=== PATIENT | female | born 1980 | race Caucasian/White ===

== ENCOUNTER 2017-01-09 14:49 | Emergency (ER) | payer MEDICAID ==
[2017-01-09 14:56] VITALS: BP 116/81; PULSE 102; TEMP 98.3; O2SAT 100
[2017-01-09] MEDS ORDERED: Oxycodone/Acetaminophen 5/325 mg Tab PO STA (15:36)
[2017-01-09] MEDS ORDERED: Oxycodone/Acetaminophen 5/325 mg Tab ONE (15:47)
--- NOTE | 2017-01-09 16:02 | C.PDOC ---
History Of Present Illness The patient, a 36 y/o female, presents to the ED for evaluation of right elbow and right knee pain which began after she sustained a fall 2 days ago. Patient states she is able to ambulate but doing so aggravates the pain. Patient denies head injury, LOC, change in sensation. Time Seen by Provider: 01/09/17 14:59 Chief Complaint (Nursing): Upper Extremity Problem/Injury History Per: Patient History/Exam Limitations: no limitations Onset/Duration Of Symptoms: Days (2) Current Symptoms Are (Timing): Still Present Quality: "Pain" Exacerbating Factor(s): Other (+ambulation ) Additional History Per: Patient Past Medical History Reviewed: Historical Data, Nursing Documentation, Vital Signs Vital Signs: Last Vital Signs Temp 98.3 F 01/09/17 14:55 Pulse 102 H 01/09/17 14:55 Resp 18 01/09/17 16:13 BP 116/81 01/09/17 14:55 Pulse Ox 100 01/09/17 20:26 - Medical History PMH: Anxiety, Back Problems, Gall Bladder Disease Denies: Chronic Kidney Disease Surgical History: Back Surgery, Cholecystectomy (2000) - [facility] Procedures INSERT INDWELLING CATH (02/18/14) Family History: States: Unknown Family Hx - Social History Hx Tobacco Use: No Hx Alcohol Use: Yes Hx Substance Use: No - Immunization History Hx Tetanus Toxoid Vaccination: No Hx Influenza Vaccination: Yes Hx Pneumococcal Vaccination: No Review Of Systems Except As Marked, All Systems Reviewed And Found Negative. Musculoskeletal: Positive for: Other (+right elbow and right knee pain ) Neurological: Negative for: Weakness, Numbness, Other (head injury, LOC ) Physical Exam - Physical Exam Appears: Non-toxic, No Acute Distress Skin: Warm, Dry, Ecchymosis (to anterior aspect of right knee and posterior elbow ) Head: Atraumatic, Normacephalic Eye(s): bilateral: Normal Inspection, EOMI Nose: Normal Oral Mucosa: Moist Neck: Supple Chest: Symmetrical, No Deformity, No Tenderness Cardiovascular: Rhythm Regular Respiratory: Normal Breath Sounds Back: Normal Inspection, No Vertebral Tenderness, No Paraspinal Tenderness Extremity: Normal ROM, Tenderness (anterior knee, posterior elbow ), Capillary Refill (less than 2 seconds ), No Deformity, No Swelling Extremity: Bilateral: Normal Color And Temperature Pulses: Left Radial: Normal, Right Radial: Normal Neurological/Psych: Oriented x3, Normal Speech, Normal Cognition, Normal Motor, Normal Sensation Gait: Steady ED Course And Treatment O2 Sat by Pulse Oximetry: 100 (on RA) Pulse Ox Interpretation: Normal Progress Note: Right knee XR, Right elbow XR ordered. XR results are unremarkable. Patient received Percocet PO. Florentin wrap applied to affected areas by light technician. On reassessment, pt is resting comfortably, showing no signs of distress, and reports an improvement in her pain. Patient is stable for discharge and is advised to follow up with orthopedic care within 1-2 days for further evaluation. Reassessment Condition: Improved Disposition - Disposition Referrals: Nathan Carroll MD [Medical Doctor] - Disposition: HOME/ ROUTINE Disposition Time: 16:01 Condition: STABLE Additional Instructions: Follow up with your primary medical doctor or clinic in 2-5 days for further evaluation. Take medications as prescribed. Return to the emergency department at any time if symptoms persist or worsen. Prescriptions: traMADol [Ultram] 50 mg PO Q8 #15 tab Instructions: Contusion in Adults (ED) - Clinical Impression Clinical Impression: Elbow contusion, Knee contusion - PA / PRICE CHECKER / Resident Statement MD/DO has reviewed & agrees with the documentation as recorded. - Scribe Statement The provider has reviewed the documentation as recorded by the Scribe (Yandy Locke) All medical record entries made by the Scribe were at my direction and personally dictated by me. I have reviewed the chart and agree that the record accurately reflects my personal performance of the history, physical exam, medical decision making, and the department course for this patient. I have also personally directed, reviewed, and agree with the discharge instructions and disposition.
[2017-01-09 16:14] VITALS: RESP 18
--- NOTE | 2017-01-09 16:42 | RAD ---
PROCEDURE: Right Knee Radiographs. HISTORY: Pain. No history of recent/ related trauma provided COMPARISON: None. FINDINGS: BONES: Normal. No fracture. JOINTS: Normal. No osteoarthritis. JOINT EFFUSION: None. OTHER FINDINGS: None. IMPRESSION: No acute findings related to/accounting for the clinical presentation. Concordant results with the preliminary interpretation rendered by the emergency department physician procedure.
--- NOTE | 2017-01-09 16:43 | RAD ---
PROCEDURE: Radiographs of the right elbow. HISTORY: pain COMPARISON: No prior. FINDINGS: BONES: Normal. No fracture. JOINTS: Normal. No osteoarthritis. SOFT TISSUES: Normal. JOINT EFFUSION: None. OTHER FINDINGS: None. IMPRESSION: Unremarkable radiographs of the right elbow. Concordant results with the preliminary interpretation rendered by the emergency department physician procedure.
== END 2017-01-09 16:13 | disposition home or self-care (01) ==
LOC: C.ER 14:49
DX: S50.01XA Contusion of right elbow, initial encounter (principal); S80.01XA Contusion of right knee, initial encounter; W19.XXXA Unspecified fall, initial encounter; Y93.89 Activity, other specified; Y92.89 Other specified places as the place of occurrence of the external cause

== ENCOUNTER 2017-02-16 11:56 | Emergency (ER) | payer MEDICAID ==
[2017-02-16 12:14] VITALS: TEMP 98.4
--- NOTE | 2017-02-16 12:52 | C.PDOC ---
History Of Present Illness 36 y/o female pmhx spinal stenosis and cervical herniated disc presents to ED with complaints of worsening left sided neck and shoulder pain. Pt was seeing pain management up until 1 month ago due to insurance issues. Pt also reports decreased ROM to the neck with tingling sensation to left arm. Pt did not take any medications for the pain. Denies fever, chills, weakness, or any other complaints. Time Seen by Provider: 02/16/17 12:19 Chief Complaint (Nursing): Upper Extremity Problem/Injury History Per: Patient History/Exam Limitations: no limitations Onset/Duration Of Symptoms: Days Current Symptoms Are (Timing): Worse Quality: "Pain" Severity: Moderate Recent travel outside of the [place]: No Past Medical History Reviewed: Historical Data, Nursing Documentation, Vital Signs Vital Signs: Last Vital Signs Temp 98.4 F 02/16/17 12:11 Pulse 95 H 02/16/17 12:11 Resp 16 02/16/17 12:11 BP 106/72 02/16/17 12:11 Pulse Ox 100 02/16/17 22:33 - Medical History PMH: Anxiety, Back Problems, Gall Bladder Disease Denies: Chronic Kidney Disease Surgical History: Back Surgery, Cholecystectomy - [facility] Procedures INSERT INDWELLING CATH (02/18/14) Family History: States: Unknown Family Hx - Social History Hx Tobacco Use: No Hx Alcohol Use: Yes Hx Substance Use: No - Immunization History Hx Tetanus Toxoid Vaccination: No Hx Influenza Vaccination: Yes Hx Pneumococcal Vaccination: No Review Of Systems Constitutional: Negative for: Fever, Chills Musculoskeletal: Positive for: Neck Pain, Shoulder Pain (left shoulder pain) Neurological: Positive for: Numbness (tingling sensation to left arm). Negative for: Weakness Physical Exam - Physical Exam Appears: Non-toxic, No Acute Distress Skin: Warm, Dry, No Rash Head: Atraumatic, Normacephalic Neck: Normal ROM, Paracervical Tenderness (left trapezius and paracervical tenderness ), Other (spasm to left trapezius) Cardiovascular: Rhythm Regular, No Murmur Respiratory: Normal Breath Sounds, No Rales, No Rhonchi, No Wheezing Extremity: No Normal ROM (decreased ROM to left shoulder, able to abduct left arm to shoulder height), Tenderness, Capillary Refill (<2 seconds), No Deformity Pulses: Left Radial: Normal Neurological/Psych: Oriented x3, Normal Speech, Normal Motor, No Normal Sensation (slight decrease in sensation to left posterior arm) ED Course And Treatment O2 Sat by Pulse Oximetry: 100 (room air) Pulse Ox Interpretation: Normal Progress Note: Plan: flexeril, toradol Medical Decision Making Medical Decision Making: pt feeling better after Toradol and muscle relaxant with much less tenderness on palpation of left trapezius muscle and increased movement to left arm, will d /c with nsaid, flexeril and some Tylenol #4 with pmd and pain mgmt follow up Disposition Counseled Patient/Family Regarding: Diagnosis, Need For Followup, Rx Given - Disposition Referrals: Chase Scott MD [Medical Doctor] - Disposition: HOME/ ROUTINE Disposition Time: 13:34 Condition: IMPROVED Additional Instructions: Follow up with your pmd and pain management as soon as possible. Take naproxen and flexeril as prescribed. Use Tylenol #4 for severe pain. Warm packs to left shoulder area several times a day. Prescriptions: Acetaminophen/Cod NO 4 [Tylenol/Cod 300 mg-60 mg] 1 tab PO Q8 PRN #9 tab PRN Reason: Pain, Severe (8-10) Cyclobenzaprine [Cyclobenzaprine HCl] 10 mg PO Q8 #9 tab Naproxen 500 mg PO BID #30 tab Instructions: Cervical Radiculopathy (ED), Muscle Spasm (ED) Forms: General Discharge Instructions - Clinical Impression Clinical Impression: Trapezius muscle spasm, Cervical radiculopathy - PA / TRANSITIONAL CARE MANAGER / Resident Statement MD/DO has reviewed & agrees with the documentation as recorded. - Scribe Statement The provider has reviewed the documentation as recorded by the Lexy Lyon All medical record entries made by the Lexy were at my direction and personally dictated by me. I have reviewed the chart and agree that the record accurately reflects my personal performance of the history, physical exam, medical decision making, and the department course for this patient. I have also personally directed, reviewed, and agree with the discharge instructions and disposition.
[2017-02-16 14:30] VITALS: BP 106/72; PULSE 95; RESP 16; O2SAT 100
== END 2017-02-16 14:29 | disposition home or self-care (01) ==
LOC: C.ER 11:56
DX: M54.12 Radiculopathy, cervical region (principal); M62.838 Other muscle spasm
CPT/HCPCS: 96372; 99283; J1885

== ENCOUNTER 2017-11-22 03:47 | Emergency (ER) | payer MEDICAID ==
[2017-11-22 03:47] VITALS: BMI 40.2
--- NOTE | 2017-11-22 04:13 | C.PDOC ---
History Of Present Illness 37 year old female brought in by family who states patient took some pills that make her restless and unsteady. Patient is pleasant, but seems restless on arival. She denies any suicidal or homicidal ideation. Time Seen by Provider: 11/22/17 05:05 Chief Complaint (Nursing): Substance Abuse History Per: Patient, Family History/Exam Limitations: no limitations Onset/Duration Of Symptoms: Hrs Current Symptoms Are (Timing): Still Present Suicide/Self Injury Attempted (Context): None Modifying Factor(s): Other Severity: None Pain Scale Rating Of: 0 Recent travel outside of the [place]: No Past Medical History Reviewed: Historical Data, Nursing Documentation, Vital Signs Vital Signs: Last Vital Signs Temp 98.6 F 11/22/17 03:58 Pulse 124 H 11/22/17 03:58 Resp 22 11/22/17 03:58 BP Pulse Ox 98 11/22/17 05:11 - Medical History PMH: Anxiety, Back Problems, Gall Bladder Disease Denies: Chronic Kidney Disease Surgical History: Back Surgery, Cholecystectomy - [facility] Procedures INSERT INDWELLING CATH (02/18/14) Family History: States: Unknown Family Hx - Social History Hx Tobacco Use: No Hx Alcohol Use: Yes Hx Substance Use: No - Immunization History Hx Tetanus Toxoid Vaccination: Yes Hx Influenza Vaccination: Yes Hx Pneumococcal Vaccination: Yes Review Of Systems Constitutional: Negative for: Fever Cardiovascular: Negative for: Chest Pain Respiratory: Negative for: Shortness of Breath Psych: Positive for: Other (seems restless). Negative for: Suicidal ideation Physical Exam - Physical Exam Appears: Non-toxic, No Acute Distress, Other (appears restless) Skin: Warm, Dry Head: Normacephalic Eye(s): bilateral: Normal Inspection Oral Mucosa: Moist Neck: Supple Chest: Symmetrical Cardiovascular: Rhythm Regular Respiratory: No Rales, No Rhonchi, No Wheezing Gastrointestinal/Abdominal: Soft, No Tenderness, No Distention Extremity: Bilateral: Atraumatic, Normal Color And Temperature, Normal ROM Pulses: Left Dorsalis Pedis: Normal, Right Dorsalis Pedis: Normal Neurological/Psych: Oriented x3 ED Course And Treatment - Laboratory Results Result Diagrams: 11/22/17 04:49 11/22/17 04:49 O2 Sat by Pulse Oximetry: 98 (RA) Pulse Ox Interpretation: Normal Progress Note: Labs, EKG ordered and reviewed. Patient started on IV fluids. Placed on 1:1 observation Disposition Counseled Patient/Family Regarding: Studies Performed, Diagnosis - Disposition Disposition Time: 07:02 Condition: UNKNOWN Forms: [facility] (German) - Clinical Impression Clinical Impression: Dizziness, Change in behavior - Scribe Statement The provider has reviewed the documentation as recorded by the Scribe (Olesya Ortiz) Provider Attestation: All medical record entries made by the Scribe were at my direction and personally dictated by me. I have reviewed the chart and agree that the record accurately reflects my personal performance of the history, physical exam, medical decision making, and the department course for this patient. I have also personally directed, reviewed, and agree with the discharge instructions and disposition. Physician Patient Turnover Patient Signed Over To: Carl Sosa Handoff Comments: pending ct, re-eval and dispostion
[2017-11-22] MEDS ORDERED: Sodium Chloride 0.9% 1,000 ML IV ONE (04:29)
[2017-11-22 04:55] LABS: BASO % 0.4 % (0.0-2.0); HEMOGLOBIN 8.3 g/dL (11.0-16.0); LYMPH # 1.6 K/uL (1.0-4.3); LYMPH % 12.9 % (20.0-40.0); MEAN CELL VOLUME 66.9 fL (81.0-99.0); MONO # 1.3 K/uL (0.0-0.8); MONO % 10.3 % (0.0-10.0); NEUT # 9.4 K/uL (1.8-7.0); NEUT % 76.4 % (50.0-75.0); RBC 4.13 Mil/uL (3.80-5.20); RED CELL DISTRIBUTION WIDTH 17.4 % (11.5-14.5); WHITE BLOOD COUNT 12.2 K/uL (4.8-10.8)
[2017-11-22 05:00] LABS: SQUAMOUS EPITHIAL 55 /hpf (0-5); URINE BACTERIA FEW (<OCC); URINE BILIRUBIN NEGATIVE (NEGATIVE); URINE BLOOD NEGATIVE (NEGATIVE); URINE CLARITY Hazy (Clear); URINE COLOR Amber (YELLOW); URINE GLUCOSE (UA) NORMAL (Normal); URINE LEUKOCYTE ESTERASE 1+ Leu/uL (Negative); URINE PROTEIN 1+ mg/dL (NEGATIVE)
[2017-11-22 05:04] LABS: HCG,QUALITATIVE URINE NEGATIVE (NEGATIVE)
[2017-11-22 05:09] LABS: ACETAMINOPHEN < 10.0 ug/mL (10.0-30.0); ALB/GLOB RATIO 0.9 (1.0-2.1); ALBUMIN 4.1 g/dL (3.5-5.0); ALT/SGPT 13 U/L (9-52); AST/SGOT 22 U/L (14-36); BLOOD UREA NITROGEN 11 mg/dL (7-17); CALCIUM 9.3 mg/dl (8.6-10.4); GFR AFRICAN-AMERICAN > 60; GFR NON-AFRICAN AMERICAN > 60; SALICYLATE < 1.0 mg/dL 1
[2017-11-22] MEDS ORDERED: Sodium Chloride 0.9% 250 ML IV ONE (05:28)
[2017-11-22] MEDS ORDERED: DiphenhydrAMINE 50 mg/ml Inj IVP STA (06:14)
[2017-11-22 06:25] LABS: BENZODIAZEPINES, UR NEGATIVE (NEGATIVE); OPIATES, UR NEGATIVE (NEGATIVE); PHENCYCLIDINE, UR NEGATIVE (NEGATIVE)
[2017-11-22] MEDS ORDERED: DiphenhydrAMINE 50 mg/ml Inj ONE (06:37)
[2017-11-22 07:05] LABS: BARBITURATES, UR POSITIVE (NEGATIVE)
--- NOTE | 2017-11-22 08:49 | CT ---
PROCEDURE: CT HEAD WITHOUT CONTRAST. HISTORY: change mental status COMPARISON: 06/18/2017 TECHNIQUE: Axial computed tomography images were obtained through the head/brain without intravenous contrast. Radiation dose: Total exam DLP = 2614 mGy-cm. This CT exam was performed using one or more of the following dose reduction techniques: Automated exposure control, adjustment of the mA and/or kV according to patient size, and/or use of iterative reconstruction technique. FINDINGS: HEMORRHAGE: No intracranial hemorrhage. BRAIN: No mass effect or edema. No atrophy or chronic microvascular ischemic changes. VENTRICLES: Unremarkable. No hydrocephalus. CALVARIUM: Unremarkable. PARANASAL SINUSES: Unremarkable as visualized. No significant inflammatory changes. MASTOID AIR CELLS: Unremarkable as visualized. No inflammatory changes. OTHER FINDINGS: None. IMPRESSION: Normal CT of the Head.
--- NOTE | 2017-11-22 08:53 | RAD ---
HISTORY: ams COMPARISON: 03/25/2014 FINDINGS: LUNGS: No active pulmonary disease. Inspiration shallow. Metallic device projecting over the left heart -possible flip cell phone PLEURA: No significant pleural effusion identified, no pneumothorax apparent. CARDIOVASCULAR: Normal. OSSEOUS STRUCTURES: Thoracic spondylosis. VISUALIZED UPPER ABDOMEN: Normal. OTHER FINDINGS: None. IMPRESSION: No active disease. No interval pathology noted
[2017-11-22 09:08] VITALS: BP 132/76; PULSE 98; RESP 18; TEMP 98.8; O2SAT 100
--- NOTE | 2017-11-22 23:45 | CARD ---
APPROVED REPORT EKG Measurement Heart [id number] <Conclusion> Sinus tachycardia Low voltage QRS Possible Anterolateral infarct, age undetermined Abnormal ECG
== END 2017-11-22 09:15 | disposition left against medical advice (07) ==
LOC: C.ER 03:47
DX: R42 Dizziness and giddiness (principal); R46.89 Other symptoms and signs involving appearance and behavior; D64.9 Anemia, unspecified
CPT/HCPCS: 70450; 71045; 80053; 80320; 80324; 80329; 80345; 80346; 80349; 80353; 80358; 80361; 81001; 83992; 84703; 85025; 93005; 96361; 96374; 96375; 99285; J1200; J1885; J7040

== ENCOUNTER 2018-01-05 14:52 | Emergency (ER) | payer SELFPAY ==
[2018-01-05 14:52] VITALS: BMI 40.2
[2018-01-05 15:01] VITALS: TEMP 98.1
[2018-01-05] MEDS ORDERED: Sodium Chloride 0.9% 1,000 ML IV ONE (15:48)
[2018-01-05 15:59] LABS: BASO # 0.1 K/uL (0.0-0.2); BASO % 0.5 % (0.0-2.0); EOS % 0.2 % (0.0-4.0); HEMOGLOBIN 7.6 g/dL (11.0-16.0); LYMPH # 1.5 K/uL (1.0-4.3); MEAN CORPUSCULAR HEMOGLOBIN 20.5 pg (27.0-31.0); MEAN CORPUSCULAR HGB CONC 30.2 g/dL (33.0-37.0); MEAN PLATELET VOLUME 8.4 fL (7.2-11.7); MONO # 0.8 K/uL (0.0-0.8); MONO % 7.8 % (0.0-10.0); NEUT # 7.6 K/uL (1.8-7.0); NEUT % 76.5 % (50.0-75.0); RBC 3.73 Mil/uL (3.80-5.20); RED CELL DISTRIBUTION WIDTH 17.4 % (11.5-14.5); WHITE BLOOD COUNT 9.9 K/uL (4.8-10.8)
[2018-01-05] MEDS ORDERED: Sodium Chloride 0.9% 1,000 ML ONE (16:00)
--- NOTE | 2018-01-05 16:01 | C.PDOC ---
History Of Present Illness 37 y/o female with a pmhx of cervical stenosis presents to the ED with complaints of feeling dizzy and lightheaded, onset while at work today. No fevers or chills. Patient also reports mild left-sided abdominal pain. Denies any headaches, neck pain, chest pain, SOB, vomiting, or diarrhea. Time Seen by Provider: 01/05/18 15:19 Chief Complaint (Nursing): Weakness/Neurological Deficit History Per: Patient History/Exam Limitations: no limitations Onset/Duration Of Symptoms: Hrs Current Symptoms Are (Timing): Still Present Past Medical History Reviewed: Historical Data, Nursing Documentation, Vital Signs Vital Signs: Last Vital Signs Temp 98.1 F 01/05/18 15:00 Pulse 97 H 01/05/18 17:01 Resp 18 01/05/18 17:01 BP 133/79 01/05/18 17:01 Pulse Ox 100 01/05/18 17:01 - Medical History PMH: Anxiety, Back Problems, Gall Bladder Disease Denies: Chronic Kidney Disease Surgical History: Back Surgery, Cholecystectomy - [facility] Procedures INSERT INDWELLING CATH (02/18/14) Family History: States: Unknown Family Hx - Social History Hx Tobacco Use: No Hx Alcohol Use: Yes Hx Substance Use: No - Immunization History Hx Tetanus Toxoid Vaccination: Yes Hx Influenza Vaccination: Yes Hx Pneumococcal Vaccination: Yes Review Of Systems Except As Marked, All Systems Reviewed And Found Negative. Constitutional: Negative for: Fever, Chills Cardiovascular: Positive for: Light Headedness. Negative for: Chest Pain Respiratory: Negative for: Shortness of Breath Gastrointestinal: Positive for: Abdominal Pain. Negative for: Vomiting, Diarrhea Musculoskeletal: Negative for: Neck Pain Neurological: Positive for: Dizziness. Negative for: Headache Physical Exam - Physical Exam Appears: Non-toxic, No Acute Distress Skin: Normal Color, Warm, Dry Head: Atraumatic, Normacephalic Eye(s): bilateral: Normal Inspection, PERRL, EOMI Nose: Normal Oral Mucosa: Moist Neck: Normal ROM, Supple Cardiovascular: Rhythm Regular, No Murmur Respiratory: Normal Breath Sounds, No Rales, No Rhonchi, No Wheezing Gastrointestinal/Abdominal: Soft, Tenderness (to the left lower quadrant ), No Guarding, No Rebound Back: Normal Inspection, No CVA Tenderness, No Vertebral Tenderness Extremity: Bilateral: Atraumatic, Normal Color And Temperature, Normal ROM Neurological/Psych: Oriented x3, Normal Speech ED Course And Treatment - Laboratory Results Result Diagrams: 01/05/18 15:55 01/05/18 15:55 O2 Sat by Pulse Oximetry: 99 (RA) Pulse Ox Interpretation: Normal Medical Decision Making Medical Decision Making: Time: 15:48 Initial Plan: --EKG --CMP --Lipase --Troponin I --CBC --PTT --Prothrombin time --Urine HCG --Occult blood, stool --Urinalysis --IV fluids noted worsening anemia, pt guiac neg. refuse further imaging, transfusion, admission. signs ama. Disposition - Disposition Referrals: [facility] [Outside] [facility] [Outside] Addy Sutherland MD [Staff Provider] - Disposition: AGAINST MEDICAL ADVICE Disposition Time: 05:00 Condition: UNKNOWN Additional Instructions: please follow up with your doctor/clinic. return to er with worsening symptoms or concerns. Prescriptions: Cefpodoxime [Vantin] 100 mg PO BID #14 tab Instructions: Anemia Caused by Low Iron, Leaving Against Medical Advice, Near Fainting Forms: [facility] (Maldivian), Work Excuse - Clinical Impression Clinical Impression: Left against medical advice, Anemia, Dizziness - Scribe Statement The provider has reviewed the documentation as recorded by the Scribe (Olesya Ortiz) Provider Attestation: All medical record entries made by the Scribe were at my direction and personally dictated by me. I have reviewed the chart and agree that the record accurately reflects my personal performance of the history, physical exam, medical decision making, and the department course for this patient. I have also personally directed, reviewed, and agree with the discharge instructions and disposition.
[2018-01-05 16:07] LABS: PROTHROMBIN TIME 11.4 SECONDS (9.7-12.2)
[2018-01-05 16:10] LABS: ALB/GLOB RATIO 1.2 (1.0-2.1); ALBUMIN 4.5 g/dL (3.5-5.0); ALT/SGPT 12 U/L (9-52); AST/SGOT 29 U/L (14-36); BLOOD UREA NITROGEN 7 mg/dL (7-17); GFR AFRICAN-AMERICAN > 60; GFR NON-AFRICAN AMERICAN > 60; HCG,QUALITATIVE URINE NEGATIVE (NEGATIVE); LIPASE 36 U/L (23-300)
[2018-01-05 16:17] LABS: SQUAMOUS EPITHIAL 14 /hpf (0-5); URINE BACTERIA OCC (<OCC); URINE BILIRUBIN NEGATIVE (NEGATIVE); URINE BLOOD NEGATIVE (NEGATIVE); URINE CALCIUM OXALATE CRYSTALS RARE /hpf (<OCC); URINE CLARITY Hazy (Clear); URINE COLOR Amber (YELLOW); URINE GLUCOSE (UA) NORMAL (Normal); URINE LEUKOCYTE ESTERASE TRACE Leu/uL (Negative); URINE PROTEIN 1+ mg/dL (NEGATIVE); URINE UROBILINOGEN NORMAL mg/dL (0.2-1.0)
[2018-01-05] MEDS ORDERED: cefTRIAXone IV 1 gm in Dextros 50 ML IVPB ONE ×2 (16:22→16:34)
[2018-01-05 17:02] VITALS: BP 133/79; PULSE 97; RESP 18
[2018-01-05 19:34] VITALS: O2SAT 99
== END 2018-01-05 17:02 | disposition left against medical advice (07) ==
LOC: C.ER 14:52
DX: D64.9 Anemia, unspecified (principal); R42 Dizziness and giddiness
CPT/HCPCS: 80053; 81001; 82948; 83690; 84484; 84703; 85025; 85610; 85730; 96360; 99285; G0328; J7040

== ENCOUNTER 2018-01-17 16:59 | Emergency (ER) | payer SELFPAY ==
[2018-01-17 17:00] VITALS: BMI 40.2
[2018-01-17 17:06] VITALS: O2SAT 100
--- NOTE | 2018-01-17 17:55 | C.PDOC ---
History Of Present Illness <Christen Case - Last Filed: 01/17/18 19:07> <Mary Cm - Last Filed: 01/17/18 20:15> <Brannon Henning - Last Filed: 01/19/18 15:32> 37 y/o female with history of Anemia and Syncope presents to ED with complaints of dizziness, weakness, nausea and left sided abdominal pain worsening for 2 weeks. Patient was seen 2 weeks ago for similar symptoms, needed blood transfusion but signed out AMA secondary to personal issues. Patient denies fever, chills, vaginal bleeding, vomiting, blood in stool or any other complaints at this time. 12/2017 LMP (ManpreetTristanChristen L) History Per: Patient History/Exam Limitations: no limitations Onset/Duration Of Symptoms: Days Current Symptoms Are (Timing): Still Present <Christen Case - Last Filed: 01/17/18 19:07> <Mary Cm - Last Filed: 01/17/18 20:15> <Brannon Henning - Last Filed: 01/19/18 15:32> Time Seen by Provider: 01/17/18 17:52 Chief Complaint (Nursing): GI Problem Past Medical History Reviewed: Historical Data, Nursing Documentation, Vital Signs - Medical History PMH: Anxiety, Back Problems, Gall Bladder Disease Surgical History: Back Surgery, Cholecystectomy Family History: States: No Known Family Hx - Social History Hx Tobacco Use: No Hx Alcohol Use: Yes Hx Substance Use: No - Immunization History Hx Tetanus Toxoid Vaccination: Yes Hx Influenza Vaccination: Yes Hx Pneumococcal Vaccination: Yes <CaseChristen huston Teodoro - Last Filed: 01/17/18 19:07> Vital Signs: Last Vital Signs Temp 98.1 F 01/17/18 20:28 Pulse 73 01/17/18 20:28 Resp 18 01/17/18 20:28 BP 136/83 01/17/18 20:28 Pulse Ox 100 01/17/18 20:28 - [facility] Procedures INSERT INDWELLING CATH (02/18/14) Review Of Systems Constitutional: Negative for: Fever, Chills Gastrointestinal: Positive for: Nausea, Abdominal Pain. Negative for: Hematochezia Genitourinary: Negative for: Dysuria, Vaginal Bleeding Neurological: Positive for: Weakness, Dizziness. Negative for: Numbness <CaseChristen huston Last Filed: 01/17/18 19:07> Physical Exam - Physical Exam Appears: Non-toxic, No Acute Distress Skin: Warm, Dry, No Rash Head: Atraumatic, Normacephalic Eye(s): bilateral: Normal Inspection Oral Mucosa: Moist Neck: Normal ROM, Supple Cardiovascular: Rhythm Regular, Other (Tachycardic) Respiratory: Normal Breath Sounds, No Rales, No Rhonchi, No Wheezing Gastrointestinal/Abdominal: Soft, Tenderness (LUQ, LLQ), No Guarding, No Rebound , Other (Obese abdomen) Back: No CVA Tenderness, No Paraspinal Tenderness Extremity: Bilateral: Atraumatic, Normal ROM Neurological/Psych: Oriented x3, Normal Speech Gait: Steady <CaseChristen Last Filed: 01/17/18 19:07> ED Course And Treatment - Laboratory Results Result Diagrams: 01/17/18 18:09 01/17/18 18:09 Lab Interpretation: No Changes Compared To Prior Results ECG: Interpreted By Me, Viewed By Me ECG Rhythm: Sinus Rhythm Rate From EC (BPM ) O2 Sat by Pulse Oximetry: 100 (RA) Pulse Ox Interpretation: Normal <CaseChristen Teodoro - Last Filed: 01/17/18 19:07> - Laboratory Results Result Diagrams: 01/17/18 18:09 01/17/18 18:09 Pulse Ox Interpretation: Normal Reevaluation Time: 20:18 Reassessment Condition: Improved () <Mary Cm - Last Filed: 01/17/18 20:15> - Laboratory Results Result Diagrams: 01/17/18 18:09 01/17/18 18:09 <Brannon Henning - Last Filed: 01/19/18 15:32> Medical Decision Making <ManpreetChristen L - Last Filed: 01/17/18 19:07> <Mary Cm - Last Filed: 01/17/18 20:15> <Brannon Henning - Last Filed: 01/19/18 15:32> Medical Decision Making: Impression: Anemia, abdominal pain Patient evaluated in Ed on 01/05/18 had labs and refused any imaging, transfusion and signed out AMA. Plan: * Labs * IV NS * CT Abdomen/Pelvis Progress: Labs reviewed Hgb 8.7 CT pending. Case signed out to DR Cm (Christen Case) Disposition - Disposition Disposition Time: 19:08 - POA Present On Arrival: None <Christen Case - Last Filed: 01/17/18 19:07> Counseled Patient/Family Regarding: Studies Performed, Diagnosis, Need For Followup, Rx Given <Mary Cm - Last Filed: 01/17/18 20:15> <Brannon Henning - Last Filed: 01/19/18 15:32> - Disposition Referrals: Cahse Scott MD [Medical Doctor] - Disposition: HOME/ ROUTINE Condition: FAIR Additional Instructions: Please return if symptoms recur Prescriptions: Ondansetron ODT [Zofran ODT] 1 odt PO BID PRN #10 odt PRN Reason: Nausea/Vomiting Pantoprazole Sodium [Protonix] 40 mg PO DAILY #15 ect Instructions: Acute Abdomen (Belly Pain), Adult (DC), Nausea and Vomiting, Adult (DC) Forms: [employer] (Cook Islander) - Clinical Impression Clinical Impression: Anemia, Left sided abdominal pain, Abdominal pain, Nausea - PA / QC ANALYST / Resident Statement / has reviewed & agrees with the documentation as recorded. - Scribe Statement The provider has reviewed the documentation as recorded by the Scribe <Christen Case - Last Filed: 01/17/18 19:07> <Mary Cm - Last Filed: 01/17/18 20:15> - PA / QC ANALYST / Resident Statement CHRIS has reviewed & agrees with the documentation as recorded. <Brannon Henning - Last Filed: 01/19/18 15:32> - Scribe Statement Junior Cates All medical record entries made by the Scribe were at my direction and personally dictated by me. I have reviewed the chart and agree that the record accurately reflects my personal performance of the history, physical exam, medical decision making, and the department course for this patient. I have also personally directed, reviewed, and agree with the discharge instructions and disposition. (Christen Case) Physician Patient Turnover Patient Signed Over To: Mary Cm Handoff Comments: Pending CT abdomen, Dispo <Christen Case - Last Filed: 01/17/18 19:07>
[2018-01-17] MEDS ORDERED: Sodium Chloride 0.9% 1,000 ML IV ONE (18:03)
[2018-01-17 18:16] LABS: BASO % 0.3 % (0.0-2.0); HEMOGLOBIN 8.7 g/dL (11.0-16.0); LYMPH # 1.6 K/uL (1.0-4.3); LYMPH % 24.5 % (20.0-40.0); MEAN CELL VOLUME 66.4 fL (81.0-99.0); MEAN CORPUSCULAR HEMOGLOBIN 20.6 pg (27.0-31.0); MONO # 0.7 K/uL (0.0-0.8); MONO % 10.3 % (0.0-10.0); NEUT # 4.2 K/uL (1.8-7.0); NEUT % 64.9 % (50.0-75.0); RBC 4.23 Mil/uL (3.80-5.20); WHITE BLOOD COUNT 6.4 K/uL (4.8-10.8)
[2018-01-17 18:20] LABS: HCG,QUALITATIVE URINE NEGATIVE (NEGATIVE)
[2018-01-17] MEDS ORDERED: Sodium Chloride 0.9% 1,000 ML ONE (18:21)
[2018-01-17 18:24] LABS: INR 1.2; PROTHROMBIN TIME 12.7 SECONDS (9.7-12.2); SQUAMOUS EPITHIAL 6 /hpf (0-5); URINE BILIRUBIN NEGATIVE (NEGATIVE); URINE BLOOD NEGATIVE (NEGATIVE); URINE CLARITY Hazy (Clear); URINE COLOR Yellow (YELLOW); URINE GLUCOSE (UA) NORMAL (Normal); URINE LEUKOCYTE ESTERASE TRACE Leu/uL (Negative); URINE PROTEIN NEGATIVE (NEGATIVE)
[2018-01-17 18:33] LABS: ALBUMIN 4.3 g/dL (3.5-5.0); ALT/SGPT 18 U/L (9-52); AST/SGOT 27 U/L (14-36); BLOOD UREA NITROGEN 9 mg/dL (7-17); CALCIUM 9.6 mg/dl (8.6-10.4); GFR AFRICAN-AMERICAN > 60; GFR NON-AFRICAN AMERICAN > 60
[2018-01-17] MEDS ORDERED: Iodixanol 320 MG/ML 100 ML BOTTLE IV ONE (19:04)
--- NOTE | 2018-01-17 19:43 | RAD ---
PROCEDURE: CHEST RADIOGRAPH, 1 VIEW HISTORY: sob, anemia, dizzy COMPARISON: Chest radiograph 11/22/2017. FINDINGS: LUNGS: No acute infiltrate bilaterally. PLEURA: No pneumothorax or pleural fluid seen. CARDIOVASCULAR: Normal. OSSEOUS STRUCTURES: No significant abnormalities. VISUALIZED UPPER ABDOMEN: Normal. OTHER FINDINGS: None. IMPRESSION: No interval acute cardiopulmonary disease appreciated.
[2018-01-17 20:28] VITALS: BP 136/83; PULSE 73; RESP 18; TEMP 98.1
--- NOTE | 2018-01-18 08:59 | CT ---
PROCEDURE: CT Abdomen and Pelvis with contrast HISTORY: left side abd pain COMPARISON: None. TECHNIQUE: Contrast dose: 100 mL Visipaque 320 Radiation dose: Total exam DLP = 928.9 mGy-cm. This CT exam was performed using one or more of the following dose reduction techniques: Automated exposure control, adjustment of the mA and/or kV according to patient size, and/or use of iterative reconstruction technique. FINDINGS: LOWER THORAX: Unremarkable. LIVER: Unremarkable. No gross lesion or ductal dilatation. GALLBLADDER AND BILE DUCTS: Prior cholecystectomy with surgical clips in place. PANCREAS: Unremarkable. No gross lesion or ductal dilatation. SPLEEN: Unremarkable. ADRENALS: Unremarkable. No mass. KIDNEYS AND URETERS: Unremarkable. No hydronephrosis. No solid mass. VASCULATURE: Unremarkable. No aortic aneurysm. BOWEL: Prior gastric sleeve surgery. No obstruction. No gross mural thickening. APPENDIX: Normal appendix. PERITONEUM: Small fat containing umbilical hernia. No free fluid. No free air. LYMPH NODES: Unremarkable. No enlarged lymph nodes. BLADDER: Unremarkable. REPRODUCTIVE: Unremarkable. BONES: L4-5 disc herniation. L5-S1 disc space narrowing. No acute fracture. OTHER FINDINGS: None. IMPRESSION: No acute abdominal pelvic pathology. Chronic incidental findings as above.
== END 2018-01-17 20:28 | disposition home or self-care (01) ==
LOC: C.ER 16:59
DX: D64.9 Anemia, unspecified (principal); R11.0 Nausea; R10.9 Unspecified abdominal pain
CPT/HCPCS: 71045; 74177; 80053; 81001; 84702; 84703; 85025; 85610; 85730; 86850; 86900; 96360; 99284; J7030; Q9967

== ENCOUNTER 2018-02-06 09:50 | Emergency (ER) | payer MEDICAID ==
[2018-02-06 09:51] VITALS: BMI 40.2
[2018-02-06 10:00] VITALS: BP 124/83; PULSE 89; RESP 18; TEMP 99; O2SAT 98
[2018-02-06 11:05] LABS: HCG,QUALITATIVE URINE NEGATIVE (NEGATIVE)
[2018-02-06 11:07] LABS: SQUAMOUS EPITHIAL 4 /hpf (0-5); URINE BACTERIA FEW (<OCC); URINE BILIRUBIN NEGATIVE (NEGATIVE); URINE BLOOD NEGATIVE (NEGATIVE); URINE CLARITY Hazy (Clear); URINE COLOR Yellow (YELLOW); URINE GLUCOSE (UA) NORMAL (Normal); URINE LEUKOCYTE ESTERASE 2+ Leu/uL (Negative); URINE PROTEIN NEGATIVE (NEGATIVE)
--- NOTE | 2018-02-06 11:11 | C.PDOC ---
History Of Present Illness 37 y/o female presents to ED with c/o vaginal itching and pain for 2 weeks. Patient has tried Vagisil with no improvement and denies fever, chills, dysuria , vaginal bleeding, urinary frequency or any other complaints at this time. Time Seen by Provider: 02/06/18 10:19 Chief Complaint (Nursing): Female Genitourinary History Per: Patient History/Exam Limitations: no limitations Onset/Duration Of Symptoms: Days Current Symptoms Are (Timing): Still Present Quality Of Discomfort: Burning Past Medical History Reviewed: Historical Data, Nursing Documentation, Vital Signs Vital Signs: Last Vital Signs Temp 99 F 02/06/18 09:58 Pulse 89 02/06/18 09:58 Resp 18 02/06/18 09:58 BP 124/83 02/06/18 09:58 Pulse Ox 98 02/06/18 11:11 - Medical History PMH: Anxiety, Back Problems, Depression, Gall Bladder Disease Surgical History: Back Surgery, Cholecystectomy - [facility] Procedures INSERT INDWELLING CATH (02/18/14) Family History: States: No Known Family Hx - Social History Hx Tobacco Use: No Hx Alcohol Use: Yes Hx Substance Use: No - Immunization History Hx Tetanus Toxoid Vaccination: Yes Hx Influenza Vaccination: Yes Hx Pneumococcal Vaccination: Yes Review Of Systems Constitutional: Negative for: Fever, Chills Gastrointestinal: Negative for: Nausea, Vomiting Genitourinary: Positive for: Other (vaginal itching and pain). 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 ED Course And Treatment O2 Sat by Pulse Oximetry: 98 (RA) Pulse Ox Interpretation: Normal Medical Decision Making Medical Decision Making: vaginal candidiasis, given Diflucan 100 mg PO in ED Disposition Doctor Will See Patient In The: Office Counseled Patient/Family Regarding: Studies Performed, Diagnosis - Disposition Referrals: Chase Scott MD [Medical Doctor] - Disposition: HOME/ ROUTINE Disposition Time: 11:11 Condition: GOOD Additional Instructions: you were treated with Diflucan 100 mg by mouth today- this is the ENTIRE treatment for vaginal yeast infection Follow-up with your PMD or our outpatient [facility] as needed Instructions: Vulvovaginal Yeast Infection Forms: [employer] (Zambian) - Clinical Impression Clinical Impression: Vagina, candidiasis - Scribe Statement The provider has reviewed the documentation as recorded by the Lexy Cates All medical record entries made by the Lexy were at my direction and personally dictated by me. I have reviewed the chart and agree that the record accurately reflects my personal performance of the history, physical exam, medical decision making, and the department course for this patient. I have also personally directed, reviewed, and agree with the discharge instructions and disposition.
== END 2018-02-06 11:25 | disposition home or self-care (01) ==
LOC: C.ER 09:50
DX: B37.3 Candidiasis of vulva and vagina (principal)

== ENCOUNTER → 2018-04-19 21:10 | Emergency (ER) | payer MEDICAID ==
[2018-04-19 21:10] VITALS: BMI 40.2
== END | disposition left against medical advice (07) ==
LOC: C.ER 21:10
DX: Z02.89 Encounter for other administrative examinations (principal); F41.9 Anxiety disorder, unspecified

== ENCOUNTER 2018-07-23 03:39 | Emergency (ER) | payer MEDICAID ==
[2018-07-23 03:39] VITALS: BMI 40.2
[2018-07-23 03:43] VITALS: TEMP 98.2
--- NOTE | 2018-07-23 04:15 | C.PDOC ---
History Of Present Illness 38 year old female with PMHx of anxiety presents to the ED for evaluation of restlessness, feeling jittery after taking her new anxiety medication today. Patient reports that after taking her new anxiety medication she started feeling jittery and feeling she was not able to stay still. Patient denies SI/HI, hallucinations, CP, SOB, palpitations, headache, dizziness, weakness, numbness. Time Seen by Provider: 07/23/18 04:11 Chief Complaint (Nursing): Anxiety History Per: Patient History/Exam Limitations: no limitations Onset/Duration Of Symptoms: Hrs Current Symptoms Are (Timing): Still Present Suicide/Self Injury Attempted (Context): None Associated Symptoms: Anxiety. denies: Depression, Suicidal Thoughts, Suicidal Plan Recent travel outside of the [place]: No Additional History Per: Patient Past Medical History Reviewed: Historical Data, Nursing Documentation, Vital Signs Vital Signs: Last Vital Signs Temp 98.2 F 07/23/18 03:41 Pulse 102 H 07/23/18 03:41 Resp 22 07/23/18 03:41 BP 122/82 07/23/18 03:41 Pulse Ox 98 07/23/18 03:41 - Medical History PMH: Anxiety, Back Problems, Depression, Gall Bladder Disease Denies: Chronic Kidney Disease Surgical History: Back Surgery, Cholecystectomy - [facility] Procedures INSERT INDWELLING CATH (02/18/14) Family History: States: Unknown Family Hx - Social History Hx Tobacco Use: No Hx Alcohol Use: Yes Hx Substance Use: No - Immunization History Hx Tetanus Toxoid Vaccination: Yes Hx Influenza Vaccination: Yes Hx Pneumococcal Vaccination: Yes Review Of Systems Constitutional: Negative for: Fever, Chills Cardiovascular: Negative for: Chest Pain Respiratory: Negative for: Cough, Shortness of Breath Gastrointestinal: Negative for: Nausea, Vomiting, Abdominal Pain Skin: Negative for: Rash Neurological: Negative for: Weakness, Numbness Psych: Positive for: Anxiety Physical Exam - Physical Exam Appears: Non-toxic, No Acute Distress, Other (laying on the stretcher, calm) Skin: Normal Color, Warm, Dry Head: Atraumatic, Normacephalic Eye(s): bilateral: Normal Inspection Oral Mucosa: Moist Neck: Normal ROM, Supple Chest: Symmetrical Cardiovascular: Rhythm Regular Respiratory: Normal Breath Sounds, No Rales, No Rhonchi, No Wheezing Gastrointestinal/Abdominal: Soft, No Tenderness Extremity: Normal ROM, No Tenderness, No Swelling Neurological/Psych: Oriented x3, Normal Speech, Normal Cognition Gait: Steady ED Course And Treatment O2 Sat by Pulse Oximetry: 98 (ON RA) Pulse Ox Interpretation: Normal Medical Decision Making Medical Decision Making: Plan: * Benadryl 50 mg PO Disposition Counseled Patient/Family Regarding: Diagnosis, Need For Followup - Disposition Referrals: YOUR,PMD [Other] Disposition: HOME/ ROUTINE Disposition Time: 04:27 Condition: IMPROVED Instructions: Anxiety, Adult (DC) Forms: [employer] (Mohawk) - Clinical Impression Clinical Impression: Anxiety, Restless, Medication reaction - Scribe Statement The provider has reviewed the documentation as recorded by the Scribe Dheeraj Pettit All medical record entries made by the Scribe were at my direction and personally dictated by me. I have reviewed the chart and agree that the record accurately reflects my personal performance of the history, physical exam, medical decision making, and the department course for this patient. I have also personally directed, reviewed, and agree with the discharge instructions and disposition.
[2018-07-23] MEDS ORDERED: DiphenhydrAMINE 50 mg/ml Inj IVP STA (04:28)
[2018-07-23 04:38] VITALS: RESP 14
[2018-07-23 04:40] VITALS: BP 110/74; PULSE 70; O2SAT 99
--- NOTE | 2018-07-25 14:54 | CARD ---
APPROVED REPORT Date of service: 07/23/2018 EKG Measurement Heart [id number] <Conclusion> Normal sinus rhythm Nonspecific ST abnormality Abnormal ECG
== END 2018-07-23 04:39 | disposition home or self-care (01) ==
LOC: C.ER 03:39
DX: R45.1 Restlessness and agitation (principal); T50.995A Adverse effect of other drugs, medicaments and biological substances, initial encounter; F41.9 Anxiety disorder, unspecified

== ENCOUNTER 2018-09-13 21:19 | Emergency (ER) | payer MEDICAID ==
[2018-09-13 21:19] VITALS: BMI 40.2
--- NOTE | 2018-09-13 22:42 | C.PDOC ---
History Of Present Illness 38 year old female presents stating she was getting something out of the bottom cabinet last night then stood up and hit her head and nose. Denies LOC, lightheadedness, dizziness, headache, or blood from ears/nose. - HPI Time Seen by Provider: 09/13/18 21:46 Chief Complaint (Nursing): Trauma History Per: Patient History/Exam Limitations: no limitations Onset/Duration Of Symptoms: Days (Last night) Location Of Injury: Anterior: Head Recent travel outside of the [place]: No Past Medical History Reviewed: Historical Data, Nursing Documentation, Vital Signs Vital Signs: Last Vital Signs Temp 98 F 09/13/18 21:27 Pulse 96 H 09/13/18 21:27 Resp 20 09/13/18 21:27 BP 124/84 09/13/18 21:27 Pulse Ox 99 09/13/18 21:27 - Medical History PMH: Anxiety, Back Problems, Depression, Gall Bladder Disease Denies: Chronic Kidney Disease Surgical History: Back Surgery, Cholecystectomy - [facility] Procedures INSERT INDWELLING CATH (02/18/14) Family History: States: Unknown Family Hx - Social History Hx Tobacco Use: No Hx Alcohol Use: Yes Hx Substance Use: No - Immunization History Hx Tetanus Toxoid Vaccination: Yes Hx Influenza Vaccination: Yes Hx Pneumococcal Vaccination: Yes Review Of Systems Except As Marked, All Systems Reviewed And Found Negative. Cardiovascular: Negative for: Light Headedness Musculoskeletal: Positive for: Other (Head injury, Facial injury) Neurological: Negative for: Headache, Dizziness Physical Exam - Physical Exam Appears: Non-toxic Skin: Warm, Dry Head: Normacephalic, Other (Tenderness and swelling to forehead) Eye(s): bilateral: Normal Inspection, PERRL, EOMI Ear(s): Bilateral: Normal Nose: Other (Tenderness and swelling to bridge of nose with minor abrasion) Oral Mucosa: Moist Neck: Normal, No Midline Cervical Tenderness, No Paracervical Tenderness, No Step Off Deformity, Supple Chest: Symmetrical, No Tenderness Cardiovascular: Rhythm Regular Respiratory: Normal Breath Sounds, No Rales, No Rhonchi, No Wheezing Gastrointestinal/Abdominal: Soft, No Tenderness Neurological/Psych: Oriented x3, Normal Speech ED Course And Treatment O2 Sat by Pulse Oximetry: 99 - Other Rad Nasal bone x-ray X-Ray: Interpreted by Me, Viewed By Me Interpretation: No acute fracture or dislocation. - CT Scan/US CT Head Other Rad Studies (CT/US): Read By Radiologist, Radiology Report Reviewed CT/US Interpretation: EXAM: CT Head without Intravenous Contrast. CLINICAL HISTORY: Dizziness. TECHNIQUE: Axial computed tomography images of the head/brain without intravenous contrast. 0.00 mGy-cm. COMPARISON: None provided. FINDINGS: BRAIN. No acute intraparenchymal hemorrhage. No mass lesion. No CT evidence for acute territorial infarct. No midline shift or extra- axial collections. VENTRICLES: No hydrocephalus. ORBITS: The orbits are unremarkable. SINUSES AND MASTOIDS: The paranasal sinuses and mastoid air cells are clear. BONES: No fracture. SOFT TISSUES: Unremarkable. IMPRESSION: No acute intracranial abnormality. Medical Decision Making Medical Decision Making: Impression: Minor head injury and contusion prelim reading of nasal bone xray demonstrate no fx. Disposition - Disposition Referrals: Chase Scott MD [Medical Doctor] - Kvng Brown MD [Staff Provider] - Disposition: HOME/ ROUTINE Disposition Time: 22:40 Condition: STABLE Additional Instructions: follow up with your doctor within 2 days call to make an appointment follow up with ent return to hospital if symptoms worsens or progress Instructions: Closed Head Injury, Contusion (DC) Forms: [facility] (Mongolian), General Discharge Instructions - Clinical Impression Clinical Impression: Head injury, Contusion - Scribe Statement The provider has reviewed the documentation as recorded by the Scribwilner Rocha All medical record entries made by the Scribe were at my direction and personally dictated by me. I have reviewed the chart and agree that the record accurately reflects my personal performance of the history, physical exam, medical decision making, and the department course for this patient. I have also personally directed, reviewed, and agree with the discharge instructions and disposition.
[2018-09-13 22:56] VITALS: BP 129/85; PULSE 92; RESP 18; TEMP 97.9
[2018-09-13 23:30] VITALS: O2SAT 99
--- NOTE | 2018-09-14 08:17 | RAD ---
Date of service: 09/13/2018 PROCEDURE: Radiographs of Nasal Bones HISTORY: hit nose COMPARISON: None available. TECHNIQUE: Frontal and lateral radiographs of the nasal bones. FINDINGS: No fracture of nasal bones visualized. No destructive lesion. Maxillary spine intact. IMPRESSION: No nasal bone fracture visualized.
--- NOTE | 2018-09-14 08:24 | CT ---
Date of service: 09/13/2018 PROCEDURE: CT HEAD WITHOUT CONTRAST. HISTORY: dizziness COMPARISON: None available. TECHNIQUE: Axial computed tomography images were obtained through the head/brain without intravenous contrast. Radiation dose: Total exam DLP = 1092.02 mGy-cm. This CT exam was performed using one or more of the following dose reduction techniques: Automated exposure control, adjustment of the mA and/or kV according to patient size, and/or use of iterative reconstruction technique. FINDINGS: HEMORRHAGE: No intracranial hemorrhage. BRAIN: No mass effect or edema. No atrophy or chronic microvascular ischemic changes. VENTRICLES: Unremarkable. No hydrocephalus. CALVARIUM: Unremarkable. PARANASAL SINUSES: Unremarkable as visualized. No significant inflammatory changes. MASTOID AIR CELLS: Unremarkable as visualized. No inflammatory changes. OTHER FINDINGS: None. IMPRESSION: No acute intracranial abnormality. If symptoms persists, consider correlation with MRI. A preliminary report was generated at 10:33 p.m. on 09/13/[address] Chidi Garcia from [employer].
== END 2018-09-13 23:00 | disposition home or self-care (01) ==
LOC: C.ER 21:19
DX: S00.93XA Contusion of unspecified part of head, initial encounter (principal); W22.8XXA Striking against or struck by other objects, initial encounter

== ENCOUNTER 2018-09-29 12:03 | Emergency (ER) | payer MEDICAID ==
[2018-09-29 12:11] VITALS: TEMP 98.5; O2SAT 98
[2018-09-29 12:18] VITALS: BMI 37.2
--- NOTE | 2018-09-29 13:41 | RAD ---
Date of service: 09/29/2018 PROCEDURE: Right Knee Radiographs. HISTORY: s/p fall r/o fx COMPARISON: None. FINDINGS: BONES: Bone alignment and mineralization are normal. There is no acute displaced fracture or bone destruction. JOINTS: Normal. JOINT EFFUSION: None. OTHER FINDINGS: None. IMPRESSION: No acute fracture or dislocation.
--- NOTE | 2018-09-29 13:45 | RAD ---
PROCEDURE: Right Hip Radiographs. HISTORY: s/p fall r/o fx COMPARISON: None. FINDINGS: BONES: Bone alignment and mineralization are normal. There is no acute displaced fracture or bone destruction. Joints The joint spaces are preserved. SOFT TISSUES: Normal. OTHER FINDINGS: None. IMPRESSION: No acute displaced fracture or dislocation.
[2018-09-29 13:53] VITALS: BP 110/68; PULSE 70; RESP 16
--- NOTE | 2018-09-29 16:51 | C.PDOC ---
History Of Present Illness Patient is a 38 year old female, with a PMHx of spinal stenosis, who presents to the ED c/o right knee and right hip pain that began after she slipped and fell yesterday. Patient states that she did not hit her head and that she has multiple medical problems, which make her gait unsteady. She states that she did not seek any medical treatment until now. Patient was ambulating in the ED hallway. She denies any LOC, CP, SOB, dizziness, headache, or visual changes. Time Seen by Provider: 09/29/18 12:20 Chief Complaint (Nursing): Back Pain History Per: Patient History/Exam Limitations: no limitations Onset/Duration Of Symptoms: Days (1) Current Symptoms Are (Timing): Still Present Quality Of Discomfort: "Pain" (right hip ) Recent travel outside of the [place]: No Additional History Per: Patient Past Medical History Reviewed: Historical Data, Nursing Documentation, Vital Signs Vital Signs: Last Vital Signs Temp 98.5 F 09/29/18 12:11 Pulse 70 09/29/18 13:52 Resp 16 09/29/18 13:52 BP 110/68 09/29/18 13:52 Pulse Ox 98 09/29/18 13:52 - Medical History PMH: Anxiety, Back Problems, Depression, Gall Bladder Disease Denies: Chronic Kidney Disease Surgical History: Back Surgery, Cholecystectomy - [facility] Procedures INSERT INDWELLING CATH (02/18/14) Family History: States: Unknown Family Hx - Social History Hx Tobacco Use: No Hx Alcohol Use: Yes Hx Substance Use: No - Immunization History Hx Tetanus Toxoid Vaccination: Yes Hx Influenza Vaccination: Yes Hx Pneumococcal Vaccination: Yes Review Of Systems Eyes: Negative for: Vision Change Cardiovascular: Negative for: Chest Pain Respiratory: Negative for: Shortness of Breath Musculoskeletal: Positive for: Leg Pain (right knee pain ), Other (right hip pain ) Neurological: Negative for: Headache, Dizziness, Other (LOC ) Physical Exam - Physical Exam Appears: Non-toxic, No Acute Distress Skin: Normal Color, Warm, Dry Head: Atraumatic, Normacephalic Oral Mucosa: Moist Neck: Normal ROM, Supple Chest: Symmetrical Cardiovascular: Rhythm Regular Respiratory: Normal Breath Sounds Gastrointestinal/Abdominal: Normal Exam, Soft, No Tenderness Extremity: Normal ROM, Tenderness (mild tenderness to lateral right hip and lateral right knee) Neurological/Psych: Oriented x3, Normal Speech ED Course And Treatment O2 Sat by Pulse Oximetry: 98 (on RA) Pulse Ox Interpretation: Normal - Other Rad Xray Rt Knee X-Ray: Viewed By Me, Read By Radiologist Interpretation: IMPRESSION: No acute fracture or dislocation. Xray Hip with Pelvis X-Ray: Viewed By Me, Read By Radiologist Interpretation: IMPRESSION: No acute displaced fracture or dislocation. Medical Decision Making Medical Decision Making: Plan: Xray Rt Knee Radiology Hip 2V W/Pelvis Rt PT Rehab Patient insisted on using crutches, although patient is full-weight bearing (no fracture). PT to eval. Disposition - Dis[facility] - Disposition: HOME/ ROUTINE Disposition Time: 13:00 Condition: GOOD Additional Instructions: DUSTY LING, thank you for letting us take care of you today. Your provider was Chidi Lobo DO and you were treated for LEG PAIN. The emergency medical care you received today was directed at your acute symptoms. If you were prescribed any medication, please fill it and take as directed. It may take several days for your symptoms to resolve. Return to the Emergency Department if your symptoms worsen, do not improve, or if you have any other problems. Please contact your doctor or call one of the physicians/clinics you have been referred to that are listed on the Patient Visit Information form that is included in your discharge packet. Bring any paperwork you were given at discharge with you along with any medications you are taking to your follow up visit. Our treatment cannot replace ongoing medical care by a primary care provider outside of the emergency department. Thank you for allowing the [facility] team to be part of your care today. Follow up with your primary care doctor in 2-3 days for re-evaluation and further management. Prescriptions: Ibuprofen [Motrin] 600 mg PO Q6 PRN #20 tab PRN Reason: Pain, Moderate (4-7) Instructions: Muscle and Bone Pain (DC) Forms: [employer] (Vietnamese) - Clinical Impression Clinical Impression: Contusion, hip, Knee contusion - Scribe Statement The provider has reviewed the documentation as recorded by the Scribe Cami Pych All medical record entries made by the Lexy were at my direction and personally dictated by me. I have reviewed the chart and agree that the record accurately reflects my personal performance of the history, physical exam, medical decision making, and the department course for this patient. I have also personally directed, reviewed, and agree with the discharge instructions and disposition.
== END 2018-09-29 14:51 | disposition home or self-care (01) ==
LOC: C.ER 12:03
DX: S80.01XA Contusion of right knee, initial encounter (principal); S70.01XA Contusion of right hip, initial encounter; W01.0XXA Fall on same level from slipping, tripping and stumbling without subsequent striking against object, initial encounter
CPT/HCPCS: 73502; 73562; 81025; 97116; 97161; 99283; G8978; G8979; G8980